=== PATIENT | male | born 1995 | race Caucasian/White ===

== ENCOUNTER 2018-09-18 12:07 | Emergency (ER) | payer OTHER ==
[2018-09-18] MEDS ORDERED: Sodium Chloride 0.9% 10 ML Syringe FLUSH PRN ×2 (12:37→12:40)
[2018-09-18] MEDS ORDERED: Iohexol 350 MG/ML 75 ML Bottle IVPUSH ONE (12:40)
[2018-09-18] MEDS ORDERED: Clindamycin Phosphate 900 MG in Sodium Chloride 0.9% 100 ML IV ONE (12:40)
--- NOTE | 2018-09-18 12:45 | EDM.PDOC ---
ED HPI GENERAL MEDICAL PROBLEM - General Chief Complaint: ENT Problem Stated Complaint: ALLERGIC REACTION,ON FACE Time Seen by Provider: 09/18/18 12:30 Source of Information: Reports: Patient History Limitations: Reports: No Limitations - History of Present Illness INITIAL COMMENTS - FREE TEXT/NARRATIVE: 23-year-old male presents for left-sided facial swelling. Symptoms have been present for about 4 days. He is currently complaining of a sore throat, dysphasia, dying aphasia and left-sided facial swelling. He denies any difficulty breathing. No history of any chronic medical conditions such as diabetes. Denies any recent teeth pain or infection. Left Throat Pain Score (Numeric/FACES): 8 - Related Data Allergies Allergy/AdvReac Type Severity Reaction Status Date / Time No Known Allergies Allergy Verified 09/18/18 12:26 Home Meds: Home Meds . [No Known Home Meds] 09/18/18 [History] Past Medical History - Past Health History Medical/Surgical History: Denies Medical/Surgical History Social & Family History - Tobacco Use Smoking Status *Q: Current Every Day Smoker Years of Tobacco use: 4 Packs/Tins Daily: 0.2 - Recreational Drug Use Recreational Drug Use: No ED ROS ENT - Review of Systems Review Of Systems: See Below Constitutional: Reports: Fever HEENT: Reports: Throat Pain, Throat Swelling, Other (Dysphagia, odynophagia) Respiratory: Denies: Shortness of Breath GI/Abdominal: Denies: Nausea, Vomiting ED EXAM, ENT - Physical Exam Exam: See Below Exam Limited By: No Limitations General Appearance: Alert, WD/WN, Mild Distress Nose: Normal Inspection Mouth/Throat: Peritonsillar Mass (left), Pharyngeal Erythema, Tonsillar Erythema , Tonsillar Exudates, Tonsillar Swelling, Uvular Deviation, Other (no tripoding , ). No: Drooling, Muffled Voice Neck: Other (Significant swelling to the left submandibular area. Overlying erythema approximately 8 cm in diameter.) Respiratory/Chest: No Respiratory Distress, Lungs Clear, Normal Breath Sounds Cardiovascular: Normal Peripheral Pulses, Regular Rate, Rhythm, No Murmur Neurological: Alert, Normal Cognition Psychiatric: Normal Affect, Normal Mood Skin: Warm, Dry, Normal Color, Erythema (overlying left submandibular area) Course - Vital Signs Last Recorded V/S: Last Vital Signs Temp 99.7 F 09/18/18 12:24 Pulse 77 06/04/19 12:24 Resp 18 09/18/18 12:24 BP 159/92 H 09/18/18 12:24 Pulse Ox 98 09/18/18 12:24 - Orders/Labs/Meds Orders: Active Orders 24 hr Category Date Time Status Peripheral IV Care [RC] . DIRECTED Care 09/18/18 12:37 Active Soft Tissue Neck w Cont [CT] Stat Exams 09/18/18 12:36 Taken CBC WITH MANUAL DIFF [HEME] Stat Lab 09/18/18 12:35 Results CULTURE BLOOD [BC] Stat Lab 09/18/18 13:10 Received CULTURE BLOOD [BC] Stat Lab 09/18/18 13:10 Received Sodium Chloride 0.9% [Normal Saline] 1,000 ml Med 09/18/18 12:51 Active IV ONETIME Sodium Chloride 0.9% [Saline Flush] Med 09/18/18 12:37 Active 10 ml FLUSH ASDIRECTED PRN Sodium Chloride 0.9% [Saline Flush] Med 09/18/18 12:40 Active 10 ml FLUSH ONETIME PRN Blood Culture x2 Reflex Set [OM.PC] Stat Oth 09/18/18 12:36 Ordered Peripheral IV Insertion Adult [OM.PC] Routine Oth 09/18/18 12:37 Ordered Medication Orders Sodium Chloride (Normal Saline) 1,000 mls @ 100 mls/hr IV ONETIME ONE Stop: 09/18/18 22:50 Last Admin: 09/18/18 13:12 Dose: 100 mls/hr Sodium Chloride (Saline Flush) 10 ml FLUSH ASDIRECTED PRN PRN Reason: Keep Vein Open Last Admin: 09/18/18 13:11 Dose: 10 ml Sodium Chloride (Saline Flush) 10 ml FLUSH ONETIME PRN PRN Reason: IV FLUSH Last Admin: 09/18/18 12:54 Dose: 10 ml Labs: Laboratory Tests 09/18/18 09/18/18 Range/Units 12:35 12:35 WBC 18.56 H (4.23-9.07) K/mm3 RBC 4.43 L (4.63-6.08) M/mm3 Hgb 13.1 L (13.7-17.5) gm/L Hct 40.1 (40.1-51.0) % MCV 90.5 (79.0-92.2) fl MCH 29.6 (25.7-32.2) pg MCHC 32.7 (32.2-35.5) g/dl RDW Std Deviation 42.9 (35.1-43.9) fL Plt Count 271 (163-337) K/mm3 MPV 10.1 (9.4-12.3) fl Sodium 135 L (136-145) mEq/L Potassium 3.9 (3.5-5.1) mEq/L Chloride 100 (98-107) mEq/L Carbon Dioxide 26 (21-32) mEq/L Anion Gap 12.9 (5-15) BUN 11 (7-18) mg/dL Creatinine 1.1 (0.7-1.3) mg/dL Est Cr Clr Drug Dosing 122.47 mL/min Estimated GFR (MDRD) > 60 (>60) mL/min BUN/Creatinine Ratio 10.0 L (14-18) Glucose 106 (74-106) mg/dL Calcium 8.7 (8.5-10.1) mg/dL Total Bilirubin 0.7 (0.2-1.0) mg/dL AST 16 (15-37) U/L ALT 19 (16-63) U/L Alkaline Phosphatase 79 (46-116) U/L C-Reactive Protein 17.8 H* (<1.0) mg/dL Total Protein 8.7 H (6.4-8.2) g/dl Albumin 3.3 L (3.4-5.0) g/dl Globulin 5.4 gm/dL Albumin/Globulin Ratio 0.6 L (1-2) Meds: Medications Generic Name Dose Route Start Last Admin Trade Name Freq PRN Reason Stop Dose Admin Sodium Chloride 1,000 mls @ 100 mls/hr 09/18/18 12:51 09/18/18 13:12 Normal Saline IV 09/18/18 22:50 100 mls/hr ONETIME ONE Administration Sodium Chloride 10 ml 09/18/18 12:37 09/18/18 13:11 Saline Flush FLUSH 10 ml ASDIRECTED PRN Administration Keep Vein Open Sodium Chloride 10 ml 09/18/18 12:40 09/18/18 12:54 Saline Flush FLUSH 10 ml ONETIME PRN Administration IV FLUSH Discontinued Medications Generic Name Dose Route Start Last Admin Trade Name Tracy PRN Reason Stop Dose Admin Dexamethasone 10 mg 09/18/18 13:52 Dexamethasone IVPUSH 09/18/18 13:53 ONETIME ONE Hydromorphone HCl 0.5 mg 09/18/18 13:42 Dilaudid IVPUSH 09/18/18 13:43 ONETIME ONE Clindamycin Phosphate 900 mg/ 106 mls @ 200 mls/hr 09/18/18 12:40 Sodium Chloride IV 09/18/18 13:11 ONETIME ONE Ampicillin Sodium/Sulbactam 100 mls @ 200 mls/hr 09/18/18 12:49 09/18/18 13: 12 Sodium 3 gm/ Sodium Chloride IV 09/18/18 13:18 200 mls/hr ONETIME ONE Administration Clindamycin Phosphate 900 mg/ 50 mls @ 94.34 mls/hr 09/18/18 13:00 Premix IV 09/18/18 13:31 ONETIME ONE Iohexol 75 ml 09/18/18 12:40 09/18/18 12:53 Omnipaque IVPUSH 09/18/18 12:41 75 ml ONETIME ONE Administration - Radiology Interpretation Free Text/Narrative:: CT of the soft tissue neck with contrast impression per vrad: shows a left peritonsillar abscess. Ill-defined fluid collection within the peripheral enhancement present within the left submandibular region measuring 1.8 x 2.8 x 2.8 cm. Surrounding inflammatory changes are present. Multiple anterior cervical and submandibular lymph node enlargement is also present. - Re-Assessments/Exams Free Text/Narrative Re-Assessment/Exam: 09/18/18 14:02 Rapid strep returned positive. CT results returned. Cultures have been drawn. Unasyn started. Spoke with Dr. Desouza, ear nose and throat collections and archives director for symptom [place]. In addition recommended 10 IV of Decadron. Will send by ambulance. Dr. Prado in the [facility] has accepted the patient. He'll go by ground ambulance to [facility] in [place]. I reviewed the labs and imaging with the patient. He is reclined in bed. No drooling or tripoding at this time. Complaining of soreness to the left submandibular area. Aware that he will be going to [place]. 09/18/18 14:04 Informed by nursing staff he is running a temperature. Will order by mouth liquid Tylenol and we do not have IV Tylenol available. Will avoid NSAIDs due to possibility of going to the OR. Departure - Departure Time of Disposition: 14:06 Disposition: DC/Tfer to [facility] Condition: Serious Clinical Impression: Peritonsillar abscess, Submandibular abscess, Strep pharyngitis - Discharge Information *PRESCRIPTION DRUG MONITORING PROGRAM REVIEWED*: No *COPY OF PRESCRIPTION DRUG MONITORING REPORT IN PATIENT BLAINE: No Referrals: PCP,Not In Area [Primary Care Provider] - Forms: ED Department Discharge Additional Instructions: Patient to go by ground EMS to [facility] in [place]. Dr. Prado in the ER accepting. Dr. Desouza ENT made aware of the patient. - My Orders Last 24 Hours: My Active Orders 09/18/18 12:35 CBC WITH MANUAL DIFF [HEME] Stat 09/18/18 12:36 Soft Tissue Neck w Cont [CT] Stat Blood Culture x2 Reflex Set [OM.PC] Stat 09/18/18 12:37 Peripheral IV Care [RC] . DIRECTED Sodium Chloride 0.9% [Saline Flush] 10 ml FLUSH ASDIRECTED PRN Peripheral IV Insertion Adult [OM.PC] Routine 09/18/18 12:40 Sodium Chloride 0.9% [Saline Flush] 10 ml FLUSH ONETIME PRN 09/18/18 12:51 Sodium Chloride 0.9% [Normal Saline] 1,000 ml IV ONETIME 09/18/18 13:10 CULTURE BLOOD [BC] Stat CULTURE BLOOD [BC] Stat - Assessment/Plan Last 24 Hours: My Active Orders 09/18/18 12:35 CBC WITH MANUAL DIFF [HEME] Stat 09/18/18 12:36 Soft Tissue Neck w Cont [CT] Stat Blood Culture x2 Reflex Set [OM.PC] Stat 09/18/18 12:37 Peripheral IV Care [RC] . DIRECTED Sodium Chloride 0.9% [Saline Flush] 10 ml FLUSH ASDIRECTED PRN Peripheral IV Insertion Adult [OM.PC] Routine 09/18/18 12:40 Sodium Chloride 0.9% [Saline Flush] 10 ml FLUSH ONETIME PRN 09/18/18 12:51 Sodium Chloride 0.9% [Normal Saline] 1,000 ml IV ONETIME 09/18/18 13:10 CULTURE BLOOD [BC] Stat CULTURE BLOOD [BC] Stat
[2018-09-18] MEDS ORDERED: Ampicillin/Sulbactam Na 3 GM in Sodium Chloride 0.9% 100 ML IV ONE (12:49)
[2018-09-18] MEDS ORDERED: Sodium Chloride 0.9% 1,000 ML IV ONE (12:51)
[2018-09-18] MEDS ORDERED: Clindamycin Phosphate in D5W 900 MG in Premix Bag 1 BAG IV ONE ×2 (13:00)
[2018-09-18] MEDS ORDERED: HYDROmorphone 0.5 MG/0.5 ML Syringe IVPUSH ONE (13:42)
[2018-09-18] MEDS ORDERED: Dexamethasone 4 MG/ML SDV IVPUSH ONE (13:52)
[2018-09-18] MEDS ORDERED: Acetaminophen 325 MG/10.15 ML ML PO ONE (14:08)
--- NOTE | 2018-09-18 15:09 | CT ---
Soft tissue neck Technique: Multiple axial sections were obtained from above the external auditory canals inferiorly to the lung apices. Intravenous contrast was utilized. Reconstructed sagittal images were obtained. Findings: Edema is identified within the left sternocleidomastoid muscle. There is a rim-enhancing lesion slightly medial to the sternocleidomastoid muscle with low density center measuring 3.0 cm most likely due to an abscess. This occurs lateral to the perivascular space. There is soft tissue swelling within the left peritonsillar region as well as diffuse thickening of the uvula. Epiglottis appears normal. Prevertebral soft tissues are normal. Peritonsillar swelling causes mass effect with slight compression of the hypopharynx to the right side. Diffuse subcutaneous edema is seen within the left neck. Left submandibular gland is slightly displaced anteriorly from the inflammatory process within the left neck. Parotids and salivary glands appear normal. Multiple lymph nodes are seen most likely representing reactive change from the left neck process. Impression: 1. Subcutaneous edema within the left sternocleidomastoid mastoid muscle. Diffuse subcutaneous edema is seen. 2. Findings compatible with 3.0 cm abscess medial to the sternocleidomastoid muscle on the left side which displaces the submandibular salivary gland anteriorly. This finding is lateral to the perivascular space. 3. Inflammatory change/swelling also noted within the left peritonsillar region causing mass effect and midline shift of the adjacent hypopharynx. 4. Thickening of the uvula. 5. Other incidental findings as noted above. Diagnostic code #5 I agree with preliminary report from [facility], finalized on 09/18/18, 2:32 PM Central Time
== END 2018-09-18 15:21 ==
LOC: JD.ED 12:07
DX: J36 Peritonsillar abscess (principal); K12.2 Cellulitis and abscess of mouth; F17.210 Nicotine dependence, cigarettes, uncomplicated
CPT/HCPCS: 36415; 70491; 80053; 85007; 85027; 86140; 87040; 87430; 96361; 96365; 96375; 99285; A9270; J0295; J1100; J1170; J7030; J7040; Q9967; 99284